=== PATIENT | male | born 1985 | race Hispanic/Latino ===

== ENCOUNTER 2024-05-09 17:47 | Emergency (ER) | payer OTHER ==
[~2024-05-09] VITALS: Ht 162.6 cm; Wt 81.0 kg
[2024-05-09] MEDS ORDERED: MORPHINE SULFATE 4 MG/ML VIAL IM ONE (17:55)
[2024-05-09] MEDS ORDERED: ONDANSETRON 4 MG/TAB ODT PO ONE (17:55)
[2024-05-09 18:00] VITALS: BP 136/88
[2024-05-09] MEDS ORDERED: FLEXERIL5 M1 PO (18:08)
[2024-05-09] MEDS ORDERED: MOTRIN800 MG PO (18:08)
[2024-05-09 18:30] VITALS: BP 149/94
[2024-05-09 18:52] VITALS: BP 149/94
== END 2024-05-09 18:58 | disposition home or self-care (01) | DRG 605 ==
LOC: ED 17:47
DX: S20.212A Contusion of left front wall of thorax, initial encounter (principal); V49.50XA Passenger injured in collision with unspecified motor vehicles in traffic accident, initial encounter